=== PATIENT | female | born 1965 | race Caucasian/White ===

== ENCOUNTER 2022-05-12 18:59 | Emergency (ER) | payer BC, SELFPAY ==
[2022-05-12 19:10] VITALS: BP 170/89; PULSE 92; RESP 18; TEMP 36.8; O2SAT 96; BMI 34.3
[2022-05-12 19:41] LABS: COVID19 -Nasal RAPID Negative (Negative)
--- NOTE | 2022-05-12 21:10 | ED.URI ---
HPI - URI/Sore Throat General Chief Complaint: Upper Respiratory Symptoms Stated Complaint: cough x12 days Time Seen by Provider: 05/12/22 21:10 Source: patient Mode of arrival: Ambulatory History of Present Illness HPI Narrative: Patient is a 56-year-old female without past medical history presenting today with cough since April 29. For work she took at home COVID test 2 days ago it was positive. She wanted another COVID test because her COVID test was . She has no fever chills. She has no productive cough dry. She is a nonsmoker Related Data Allergies Allergy/AdvReac Type Severity Reaction Status Date / Time bacitracin Allergy Severe Redness of Verified 05/12/22 19:10 [From Neosporin Skin ([id number])] neomycin Allergy Severe Redness of Verified 05/12/22 19:10 [From Neosporin Skin ([id number])] polymyxin B Allergy Severe Redness of Verified 05/12/22 19:10 [From Neosporin Skin ([id number])] Review of Systems Review of Systems Narrative: GENERAL: Denies chills,fever HEENT: Denies throat pain RESPIRATORY: See HPI CARDIOVASCULAR: Denies chest pain, palpitations GASTROINTESTINAL: Denies nausea, vomiting MUSCULOSKELETAL: Denies extremity pain, injury SKIN: No rash, no laceration, no pruritus NEUROLOGIC: Denies weakness, dizziness, headache, numbness 8 point review of systems is negative except for those stated above and HPI Patient History Social History Smoking Status: Never smoker Smoking Status: Never smoker Substance Use Type: does not use Exam Initial Vital Signs Initial Vital Signs: Vital Signs Temperature 98.3 F 05/12/22 19:10 Pulse Rate 92 H 05/12/22 19:10 Respiratory Rate 18 05/12/22 19:10 Blood Pressure 170/89 H 05/12/22 19:10 Pulse Oximetry 96 05/12/22 19:10 Oxygen Delivery Method 05/12/22 19:10 GENERAL: Alert pleasant 56-year-old female and in no acute distress. HEENT: Head atraumatic,EOMI, pupils reactive, face symmetric, moist mucous membranes CARDIOVASCULAR: Regular rate and rhythm without murmurs, rubs or gallops. RESPIRATORY: Breath sounds equal bilaterally, no wheezes rales or rhonchi. EXTREMITIES: Normal range of motion, no clubbing or edema. Neurovascularly intact NEUROLOGICAL: Alert and oriented x4 SKIN: Warm, dry, no laceration, no petechiae, no rashes or lesions. Course Orders Ordered: ED Orders 05/12/22 19:15 COVID19 -Nasal RAPID/Pre-Proc Stat Discontinued Medications Albuterol (Albuterol Hfa Prepack) 1 box MISC SEEINSTR ONE Stop: 05/12/22 21:14 Last Admin: 05/12/22 21:20 Dose: 1 box Documented By: CHLOE Vital Signs Vital signs: Vital Signs - 8 hr 05/12/22 21:29 Pulse Rate 89 Respiratory Rate 22 Blood Pressure 135/88 Pulse Oximetry 99 Oxygen Delivery Method Room Air MDM - URI/Sore Throat Lab Data Labs: Lab Results 05/12/22 Range/Units 19:15 SARS-CoV-2 (PCR) Negative (Negative) MDM Narrative Medical decision making narrative: Patient really has negative symptom she has a nonproductive cough. Given an inhaler and spacer teaching. States her biggest complaint is really every time she coughs she urinates. Discharge Plan Departure Patient Disposition: Home Clinical Impression: Upper respiratory infection Instructions: DI for Viral Upper Respiratory Infection -- Adult Activity Restrictions/Additional Instructions: *You have been diagnosed with upper respiratory infection *What to do: Your COVID test is negative today. You may try honey to help with coughing *Continue to take medications as directed Albuterol 1-2 puffs every 4-6 hours if needed for coughing or shortness of breath *Follow up with your primary care provider in 2-3 days or call [phone] *Return to ER if you should have increasing shortness of breath cough chest pain or any new, worsening or concerning symptoms Visit Report Forms: Patient Portal/API
[2022-05-12] MEDS: ALBUTEROL HFA PREPACK 1 BOX MISC (21:20)
[2022-05-12 21:29] VITALS: BP 135/88; PULSE 89; RESP 22; O2SAT 99
== END 2022-05-12 21:31 | disposition home or self-care (01) ==
PROVIDERS: Emergency Provider Emergency Medicine
DX: J06.9 Acute upper respiratory infection, unspecified (principal); Z20.822 Contact with and (suspected) exposure to COVID-19
CPT/HCPCS: 87635; 99281; 99283; C9803

== ENCOUNTER → 2022-05-15 08:50 | Outpatient (CLI) | payer BC, SELFPAY ==
[2022-05-15 13:06] LABS: Influenza A - CEPHEID Flu A POSITIVE (NEGATIVE); Influenza B - CEPHEID Flu B NEGATIVE (NEGATIVE); Respiratory Syncytial Virus Negative (Negative)
[2022-05-15 13:21] LABS: COVID-19 CEPHEID 4-PLEX PCR Negative (Negative)
== END ==
PROVIDERS: Visit Provider Physician Assistant
DX: R05.9 Cough, unspecified (principal)
CPT/HCPCS: 0241U

== ENCOUNTER → 2022-05-15 09:00 | Outpatient (CLI) | payer BC, SELFPAY ==
--- NOTE | 2022-05-15 09:10 | DI.RAD.S_ITS ---
PROCEDURE: XR CHEST 2V INDICATIONS: Chest pressure and congestion TECHNIQUE: 2 views of the chest were acquired. COMPARISON: None. FINDINGS: Surgical changes and devices: None. Lungs and pleura: Lungs are clear. No pleural effusions or pneumothorax. Mediastinum: Mediastinal contours are normal. Heart size is normal. Atherosclerotic vascular calcification noted in the aortic arch. Bones and chest wall: No suspicious bony abnormalities. Soft tissues appear unremarkable. IMPRESSION: No acute cardiopulmonary findings Approved by: Cisco Ochoa M.D. on 05/15/2022 at 9:48
== END ==
PROVIDERS: Referring Provider Physician Assistant; Visit Provider Physician Assistant
DX: R05.9 Cough, unspecified (principal)
CPT/HCPCS: 0241U; 71046

== ENCOUNTER → 2022-07-21 13:03 | Outpatient (CLI) | payer BC, SELFPAY ==
--- NOTE | 2022-07-21 13:04 | DI.RAD.S_ITS ---
PROCEDURE: XR FOOT LT MIN 3V INDICATIONS: Progressive left heel pain TECHNIQUE: 3 views of the foot were acquired. COMPARISON: None. FINDINGS: Bones: No fractures or dislocations. No suspicious bony lesions. Mild degenerative joint disease in ankle and foot. Calcaneal spurring. Soft tissues: No tibiotalar joint effusion. Achilles tendon appears normal. IMPRESSION: 1. Mild degenerative joint disease. 2. Calcaneal spurring. Dictated by: Kuldeep Mariee M.D. on 07/21/2022 at 16:55 Approved by: Kuldeep Mariee M.D. on 07/21/2022 at 16:56
== END ==
PROVIDERS: PCP Family Medicine; Referring Provider Family Medicine; Visit Provider Family Medicine
DX: M19.072 Primary osteoarthritis, left ankle and foot (principal); M77.32 Calcaneal spur, left foot; M79.672 Pain in left foot
CPT/HCPCS: 73630

== ENCOUNTER → 2024-01-27 19:08 | Outpatient (CLI) | payer BC, SELFPAY ==
--- NOTE | 2024-01-27 19:09 | DI.MRI.S_ITS ---
PROCEDURE: MR SHOULDER LT WO CON INDICATIONS: IMPINGEMENT SYNDROME OF LEFT SHOUDLER TECHNIQUE: Noncontrast oblique coronal T2 fast spin echo with fat saturation, oblique sagittal T1 spin echo and T2 fast spin echo with fat saturation, axial T1 spin echo and T2 fast spin echo with fat saturation through the shoulder. COMPARISON: None. FINDINGS: Image quality: Excellent. Rotator cuff: Low-grade articular surface partial-thickness tear involving distal supraspinatus at its insertion on humeral head is seen extending to musculotendinous junction. Distal infraspinatus tendinosis is seen. Low-grade partial-thickness tear involving superior fibers of distal subscapularis. No full-thickness rotator cuff tendon rupture. Sagittal images demonstrate no significant rotator cuff muscle atrophy. Bones and bursae: No bone marrow contusions or fractures. Mild acromioclavicular joint osteoarthritic changes are seen with joint space narrowing, subchondral sclerosis and small marginal osteophyte formation depressing the musculotendinous junction of supraspinatus. Type 1 acromion, without an os acromiale. No pathologic subacromial-subdeltoid or subcoracoid bursal fluid is present. Capsule and soft tissues: There is fraying of superior anterior labrum with T2 hyperintense signal concerning for subtle superior anterior labral tear. The long head of the biceps tendon demonstrates appears thickened intra-articularly. The rotator interval appears normal, without fibrosis. The coracohumeral ligament is normal in thickness. IMPRESSION: 1. Low-grade articular surface partial-thickness tear involving distal supraspinatus extending to musculotendinous junction. Distal infraspinatus tendinosis. Low-grade partial-thickness tear involving superior fibers of distal subscapularis. No full-thickness rotator cuff tendon rupture. 2. Mild acromioclavicular joint osteoarthritis. No fracture or dislocation. No significant joint effusion or subacromial subdeltoid bursal fluid. 3. Finding is concerning for subtle superior anterior labral tear. 4. Proximal intra-articular portion of long head of biceps tendinosis. Dictated by: David Olivo M.D. on 01/30/2024 at 9:58 Approved by: David Olivo M.D. on 01/30/2024 at 10:21
== END ==
PROVIDERS: PCP Family Medicine; Referring Provider Orthopaedic Surgery; Visit Provider Orthopaedic Surgery
DX: M75.42 Impingement syndrome of left shoulder (principal); M19.012 Primary osteoarthritis, left shoulder
CPT/HCPCS: 73221